=== PATIENT | female | born 1980 | race African-American/Black ===

== ENCOUNTER → 2018-03-21 | Outpatient (CLI) | payer BC ==
[~2018-03-21] MED LIST: ASPI81CH PO; BUTASPCAFT PO; ESTR2 PO; IBUP800 PO; LUPRON DEPOT7.5 MG; MISO200 VAG; OXYACE5T PO; Percocet 5-3251 EACH PO; Verotin-Gr Cap1 EACH PO; Zofran Odt4 MG SL
== END ==
LOC: LAB 10:50 → LAB SHORT 10:50
DX: Z34.80 Encounter for supervision of other normal pregnancy, unspecified trimester (principal)
CPT/HCPCS: 87081; 87653

== ENCOUNTER → 2018-09-27 | Outpatient (CLI) | payer BC ==
[~2018-09-27] MED LIST changes: +MIRALAX17 GM; +Percocet 7.5-31 EACH PO
[2018-09-28 08:25] LABS: Source, Urine Clean Catch
[2018-09-28 12:38] LABS: Bilirubin, Urine Neg (Neg); Blood, Urine Neg (Neg); Glucose Qualitative, Urine Neg (Neg); Ketones, Urine Neg (Neg); Leukocyte Esterase, Urine Neg (Neg); Nitrite, Urine Neg (Neg); Protein, Urine Neg (Neg); Urobilinogen, Urine NORM (Normal)
[2018-09-28 12:51] LABS: Appearance, Urine Clear (Clear); Color, Urine Pale Yellow (P-Yellow)
[2018-09-28 13:58] LABS: Candida species (DNA Probe) Negative (NEGATIVE); G. vaginalis (DNA Probe) Negative (NEGATIVE); T. vaginalis (DNA Probe) Negative (NEGATIVE)
== END ==
LOC: LAB 18:00 → LAB SHORT 18:00
PROVIDERS: Nurse Practitioner Family
DX: L29.8 Other pruritus (principal)
CPT/HCPCS: 81003; 87480; 87510; 87660

== ENCOUNTER → 2019-07-19 | Outpatient (CLI) | payer BC ==
[2019-07-23 15:07] LABS: HPV 16 Negative (Negative); HPV 18 Negative (Negative); HPV OTHER HR TYPES Negative (Negative)
== END | disposition home or self-care (01) ==
LOC: LAB SHORT 10:30 → LAB 10:30
PROVIDERS: Obstetrics & Gynecology
DX: Z01.419 Encounter for gynecological examination (general) (routine) without abnormal findings (principal)
CPT/HCPCS: 87624; G0123